=== PATIENT | female | born 1995 | race Caucasian/White ===

== ENCOUNTER 2016-06-06 16:18 | Emergency (ER) | payer OTHER ==
[~2016-06-06] VITALS: Ht 165.1 cm; Wt 54.4 kg
[~2016-06-06 16:18] MED LIST: NAPR500T3 PO; TRAM50TA PO
[2016-06-06 16:30] VITALS: BP 121/78
--- NOTE | 2016-06-06 16:46 | ED.ADGEN ---
Past History Past Medical History: Other Past Surgical History: No Surgical History Smoking: Non-smoker Alcohol Use: None Drug Use: None Adult General HPI HPI Patient is a 21-year-old female presents emergency department complaining of left ankle pain. Patient fell injuring her left ankle during a lacrosse game just prior to arrival. She did have ibuprofen earlier but has had no other hospital intervention. She denies any other injuries. Review of Systems Review of Systems Constitutional: Denies fever or chills [] Eyes: Denies change in visual acuity, redness, or eye pain [] HENT: Denies nasal congestion or sore throat [] Respiratory: Denies cough or shortness of breath [] Cardiovascular: No additional information not addressed in HPI [] GI: Denies abdominal pain, nausea, vomiting, bloody stools or diarrhea [] : Denies dysuria or hematuria [] Musculoskeletal: Denies back pain or joint pain [] Integument: Denies rash or skin lesions [] Neurologic: Denies headache, focal weakness or sensory changes [] Endocrine: Denies polyuria or polydipsia [] Current Medications Current Medications Current Medications Medications (Trade) Dose Ordered Sig/Danyelle Start Time Stop Time Status Last Admin Dose Admin Acetaminophen/ Hydrocodone Bitart (Lortab 5/325) 2 tab 1X ONCE 06/06/16 17:00 06/06/16 17:02 DC Allergies Allergies Allergies Coded Allergies Type Severity Reaction Last Updated Verified lactase Allergy Unknown 05/24/15 Yes Physical Exam Physical Exam Constitutional: Well developed, well nourished, no acute distress, non-toxic appearance. [] HENT: Normocephalic, atraumatic, bilateral external ears normal, oropharynx moist, no oral exudates, nose normal. [] Eyes: PERRLA, EOMI, conjunctiva normal, no discharge. [] Neck: Normal range of motion, no tenderness, supple, no stridor. [] Cardiovascular:Heart rate regular rhythm, no murmur [] Lungs & Thorax: Bilateral breath sounds clear to auscultation [] Abdomen: Bowel sounds normal, soft, no tenderness, no masses, no pulsatile masses. [] Skin: Warm, dry, no erythema, no rash. [] Extremities: Left ankle is tender to palpation particularly over the lateral malleolus, there is associated edema. [] Neurologic: Alert and oriented X 3, normal motor function, normal sensory function, no focal deficits noted. [] Psychologic: Affect normal, judgement normal, mood normal. [] Current Patient Data Vital Signs Vital Signs Date Time Temp Pulse Resp B/P Pulse Ox O2 Delivery O2 Flow Rate FiO2 06/06/16 16:30 99.4 66 16 100 Room Air EKG EKG [] Radiology/Procedures Radiology/Procedures EXAM: Left ankle, 3 views.. HISTORY: Rolled ankle. COMPARISON: None. FINDINGS: Frontal, lateral and mortise views of the left ankle are obtained. There is no fracture, dislocation or subluxation. There is diffuse lateral predominant ankle soft tissue swelling. No osteochondral lesion is seen. IMPRESSION: Lateral predominant left ankle soft tissue swelling. DICTATED AND SIGNED BY: MIMA FRAIRE MD DATE: 06/06/161653 CC: TAQUERIA COLEMAN MD; PCP,NO ~ [] Course & Med Decision Making Course & Med Decision Making Pertinent Labs and Imaging studies reviewed. (See chart for details) Reassuring x-ray. Patient was placed in a splint. Was given crutches as well as a prescription for Wishram. He will follow-up with her physician as needed return emergency department sooner she develops new or worsening symptoms. [] Final Impression Final Impression Left ankle sprain [] Problems: Dragon Disclaimer Dragon Disclaimer This electronic medical record was generated, in whole or in part, using a voice recognition dictation system. TAQUERIA COLEMAN MD Jun 06, 2016 16:46
[2016-06-06] MEDS ORDERED: HYDR-971 PO (16:53)
--- NOTE | 2016-06-06 16:58 | RAD ---
EXAM: Left ankle, 3 views.. HISTORY: Rolled ankle. COMPARISON: None. FINDINGS: Frontal, lateral and mortise views of the left ankle are obtained. There is no fracture, dislocation or subluxation. There is diffuse lateral predominant ankle soft tissue swelling. No osteochondral lesion is seen. IMPRESSION: Lateral predominant left ankle soft tissue swelling.
[2016-06-06] MEDS: HYDROCODONE/APAP 5/325MG TABLET. PO ONE (17:05)
== END 2016-06-06 17:33 | disposition home or self-care (01) ==
LOC: ER 16:30
DX: S93.402A Sprain of unspecified ligament of left ankle, initial encounter (principal); Z91.011 Allergy to milk products; W19.XXXA Unspecified fall, initial encounter; Y93.65 Activity, lacrosse and field hockey; Y99.8 Other external cause status; Y92.89 Other specified places as the place of occurrence of the external cause
CPT/HCPCS: 29515; 73610; 99284-25

== ENCOUNTER 2018-05-09 11:13 | Emergency (ER) | payer OTHER ==
[~2018-05-09] VITALS: Ht 165.1 cm; Wt 54.4 kg
[~2018-05-09 11:13] MED LIST changes: +HYDR-3165 PO; +NAPR-514 PO; -NAPR500T3 PO
[2018-05-09 11:19] VITALS: BP 116/79
--- NOTE | 2018-05-09 12:02 | PHYS DOC ---
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 She did not have a flu shot this year. She's had no nausea or vomiting. She denies any hemoptysis. She is concerned that she might have the flu. She is able to tolerate fluids and has been doing so liberally. Review of Systems Review of Systems Constitutional: Per history of present illness[] Eyes: Denies change in visual acuity, redness, or eye pain [] HENT: Nasal congestion and clear rhinorrhea[] Respiratory: Reports a dry nonproductive cough[] Cardiovascular: No additional information not addressed in HPI [] GI: Denies abdominal pain, nausea, vomiting, bloody stools or diarrhea [] : Denies dysuria or hematuria [] Musculoskeletal: Denies back pain or joint pain [] Integument: Denies rash or skin lesions [] Neurologic: Denies headache, focal weakness or sensory changes [] Endocrine: Denies polyuria or polydipsia [] All other systems were reviewed and found to be within normal limits, except as documented in this note. Allergies Allergies Allergies Coded Allergies Type Severity Reaction Last Updated Verified egg Allergy Unknown 05/09/18 Yes lactase Allergy Unknown 05/24/15 Yes Physical Exam Physical Exam Constitutional: Well developed, well nourished, no acute distress, has an ill but non-toxic appearance. [] HENT: Normocephalic, atraumatic, bilateral external ears normal, oropharynx moist, no oral exudates, nose normal. [] Eyes: PERRLA, EOMI, conjunctiva normal, no discharge. [] Neck: Normal range of motion, no tenderness, supple, no stridor. [] Cardiovascular:Heart rate regular rhythm, no murmur [] Lungs & Thorax: Bilateral breath sounds clear to auscultation [] Abdomen: Bowel sounds normal, soft, no tenderness, no masses, no pulsatile masses. [] Skin: Warm, dry, no erythema, no rash. [] Back: No tenderness, no CVA tenderness. [] Extremities: No tenderness, no cyanosis, no clubbing, ROM intact, no edema. [] Neurologic: Alert and oriented X 3, normal motor function, normal sensory function, no focal deficits noted. [] Psychologic: Affect normal, judgement normal, mood normal. [] Current Patient Data Vital Signs Vital Signs Date Time Temp Pulse Resp B/P (MAP) Pulse Ox O2 Delivery O2 Flow Rate FiO2 05/09/18 11:19 98.6 105 18 97 Room Air EKG EKG [] Radiology/Procedures Radiology/Procedures [] Course & Med Decision Making Course & Med Decision Making Pertinent Labs and Imaging studies reviewed. (See chart for details) [ED course: Evaluation reveals a 23-year-old female with flulike symptoms. I've encouraged her to drink plenty of fluids at home and use ibuprofen for headache and body aches as well as fever. I've also let her know to return should her symptoms worsen.] Dragon Disclaimer Dragon Disclaimer This electronic medical record was generated, in whole or in part, using a voice recognition dictation system. Departure Departure: Impression: Primary Impression: Viral syndrome Disposition: 01 HOME, SELF-CARE Condition: STABLE Referrals: PCP,NO (PCP) Patient Instructions: Viral Infections Additional Instructions: Return to the emergency department with any new or concerning symptoms KEVIN MARIO DO May 09, 2018 12:02
== END 2018-05-09 12:07 | disposition home or self-care (01) ==
LOC: ER 11:13
DX: B34.9 Viral infection, unspecified (principal); Z91.012 Allergy to eggs; Z91.011 Allergy to milk products
CPT/HCPCS: 99281